=== PATIENT | female | born 1985 | race Caucasian/White ===

== ENCOUNTER 2019-07-25 10:50 | Emergency (ER) | payer MEDICAID, OTHER ==
[~2019-07-25] VITALS: Ht 170.2 cm; Wt 65.0 kg
[2019-07-25] MEDS ORDERED: SODIUM CHLORIDE 0.9% 1,000 ML IV ONE (11:11)
[2019-07-25 11:40] LABS: EOSINOPHILS % 0.3 % (0.0-5.0); HEMATOCRIT. 44.6 % (36.0-48.0); HEMOGLOBIN. 15.6 g/dL (12.0-16.0); LYMPHOCYTES % 24.6 % (20.0-50.0); MEAN CORPUSCULAR HEMOGLOBIN 33.6 pg (28.0-32.0); MEAN CORPUSCULAR VOLUME 96.4 fL (81.0-99.0); MEAN PLATELET VOLUME 8.7 fl (7.4-10.4); MONOCYTES % 6.9 % (2.0-8.0); NEUTROPHILS % 67.2 % (40.0-76.0); PLATELET 207 x1000/uL (130-400); RED BLOOD CELL COUNT 4.63 mill/uL (4.2-5.4); RED CELL DISTRIBUTION WIDTH 12.8 % (11.6-14.6)
[2019-07-25 11:44] LABS: CHLORIDE 100 mEq/L (98-107)
[2019-07-25 11:46] LABS: INR 1.1; PROTHROMBIN TIME 11.5 sec (9.6-11.0)
[2019-07-25 11:52] LABS: HCG SCREEN NEGATIVE
[2019-07-25 12:14] LABS: CLARITY URINE CLEAR (CLEAR); COLOR URINE DARK YELLOW (YELLOW); KETONES URINE 1+ (NEGATIVE); LEUKOCYTE ESTERASE URINE TRACE (NEGATIVE); NITRITE URINE NEGATIVE (NEGATIVE); OCCULT BLOOD URINE 3+ (NEGATIVE); PROTEIN URINE 1+ (NEGATIVE); SPECIFIC GRAVITY URINE 1.028 (1.005-1.030)
[2019-07-25] MEDS ORDERED: VISCOUS LIDOCAINE 2% 15 ML UDC PO STA (12:34)
[2019-07-25] MEDS ORDERED: MAGNESIUM/ALUMINUM HYDROXIDE/SIMETHICONE 30ML UDC PO STA (12:34)
[2019-07-25] MEDS ORDERED: FAMOTIDINE 20MG/2ML VIAL IV STA (12:34)
[2019-07-25] MEDS ORDERED: LORAZEPAM 2MG/ML CPJ IV ONE (12:45)
[2019-07-25 15:21] VITALS: BP 127/86
== END 2019-07-25 15:25 | disposition home or self-care (01) ==
LOC: ER 10:50
DX: F10.20 Alcohol dependence, uncomplicated (principal); Y90.9 Presence of alcohol in blood, level not specified; K70.10 Alcoholic hepatitis without ascites; F41.9 Anxiety disorder, unspecified; R03.0 Elevated blood-pressure reading, without diagnosis of hypertension; R20.0 Anesthesia of skin; M25.642 Stiffness of left hand, not elsewhere classified; M25.641 Stiffness of right hand, not elsewhere classified; M25.675 Stiffness of left foot, not elsewhere classified; M25.674 Stiffness of right foot, not elsewhere classified; J02.9 Acute pharyngitis, unspecified
CPT/HCPCS: 36415; 74176; 76705; 80053; 81003; 83690; 84703; 85025; 85610; 93005; 96374; 96375; 99285; J2060; J3490; J7030

== ENCOUNTER 2021-07-01 21:58 | Emergency (ER) | payer MEDICAID ==
[~2021-07-01] VITALS: Ht 170.2 cm; Wt 59.0 kg
[2021-07-01 23:52] LABS: BASOPHILS % 0.9 % (0.0-2.0); HEMATOCRIT. 34.8 % (36.0-48.0); HEMOGLOBIN. 12.2 g/dL (12.0-16.0); LYMPHOCYTES % 24.5 % (20.0-50.0); MEAN CORPUSCULAR HEMOGLOBIN 35.4 pg (28.0-32.0); MEAN PLATELET VOLUME 8.8 fl (7.4-10.4); MONOCYTES % 8.5 % (2.0-8.0); NEUTROPHILS % 65.1 % (40.0-76.0); PLATELET 205 x1000/uL (130-400); RED BLOOD CELL COUNT 3.45 mill/uL (4.2-5.4); RED CELL DISTRIBUTION WIDTH 13.3 % (11.6-14.6)
[2021-07-02 00:14] LABS: CHLORIDE 99 mEq/L (98-107)
[2021-07-02 00:22] LABS: CLARITY URINE CLEAR (CLEAR); COLOR URINE ORANGE (YELLOW); KETONES URINE TRACE (NEGATIVE); LEUKOCYTE ESTERASE URINE TRACE (NEGATIVE); NITRITE URINE NEGATIVE (NEGATIVE); OCCULT BLOOD URINE NEGATIVE (NEGATIVE); PROTEIN URINE NEGATIVE (NEGATIVE); SPECIFIC GRAVITY URINE 1.015 (1.005-1.030)
[2021-07-02 02:04] LABS: INR 1.1; PROTHROMBIN TIME 11.5 sec (9.6-11.0)
[2021-07-02] MEDS ORDERED: ACETAMINOPHEN 325MG TABLET PO ONE (03:00)
[2021-07-02 03:53] VITALS: BP 147/96
== END 2021-07-02 03:53 | disposition home or self-care (01) ==
LOC: ER 21:58
DX: K70.10 Alcoholic hepatitis without ascites (principal); Z88.0 Allergy status to penicillin
CPT/HCPCS: 36415; 80053; 81003; 82270; 85025; 86850; 86900; 99283

== ENCOUNTER 2023-05-25 02:35 | Inpatient (IN) | payer MEDICAID, OTHER ==
[~2023-05-25] VITALS: Ht 170.2 cm; Wt 65.8 kg
[~2023-05-25 02:35] MED LIST: MAGN100T6 MT; POTA-204 MT; THIA50TA12 MT; VANJ5 PO
[2023-05-25 03:56] LABS: BASOPHILS % 0.7 % (0.0-2.0); EOSINOPHILS % 0.4 % (0.0-5.0); HEMATOCRIT. 36.3 % (36.0-48.0); HEMOGLOBIN. 12.1 g/dL (12.0-16.0); LYMPHOCYTES % 12.8 % (20.0-50.0); MEAN CORPUSCULAR HEMOGLOBIN 32.9 pg (28.0-32.0); MEAN CORPUSCULAR HGB CONC 33.4 g/dL (31.0-37.0); MEAN CORPUSCULAR VOLUME 98.5 fL (81.0-99.0); MEAN PLATELET VOLUME 8.5 fl (7.4-10.4); MONOCYTES % 6.1 % (2.0-8.0); PLATELET 162 x1000/uL (130-400); RED BLOOD CELL COUNT 3.69 mill/uL (4.2-5.4); RED CELL DISTRIBUTION WIDTH 19.9 % (11.6-14.6); WHITE BLOOD COUNT 7.9 x1000/uL (4.5-11.0)
[2023-05-25 04:11] LABS: CLARITY URINE CLEAR (CLEAR); COLOR URINE YELLOW (YELLOW); GLUCOSE URINE NEGATIVE (NEGATIVE); KETONES URINE NEGATIVE (NEGATIVE); LEUKOCYTE ESTERASE URINE 1+ (NEGATIVE); NITRITE URINE POSITIVE (NEGATIVE); OCCULT BLOOD URINE NEGATIVE (NEGATIVE); PH URINE >9 (4.5-8.0); PROTEIN URINE 2+ (NEGATIVE); SPECIFIC GRAVITY URINE 1.032 (1.005-1.030); UROBILINOGEN URINE 1 E.U./dL (0.2-1.0)
[2023-05-25 04:13] LABS: BACTERIA URINE TRACE; RBC URINE NONE SEEN /hpf (0-2); SQUAMOUS EPITHELIAL CELL URINE FEW /lpf (RARE/1+)
[2023-05-25 05:00] LABS: ALANINE AMINOTRANSFERASE 81 IU/L (10-49); ALBUMIN 4.7 g/dL (3.2-4.8); ASPARTATE AMINOTRANSFERASE 173 IU/L (<34); BILIRUBIN TOTAL 1.7 mg/dL (0.1-1.0); CALCIUM 8.3 mg/dL (8.7-10.4); CARBON DIOXIDE 29 mEq/L (21-32); CHLORIDE 96 mEq/L (98-107); CREATININE 0.7 mg/dL (0.6-1.0); GLUCOSE 108 mg/dL (70-105); POTASSIUM 3.6 mEq/L (3.5-5.1); PROTEIN TOTAL 8.1 g/dL (6.0-8.3); SODIUM 136 mEq/L (136-145); UREA NITROGEN BLOOD 11 mg/dL (9-23)
[2023-05-25] MEDS: ONDANSETRON HCL 4MG/2ML INJ IV STA ×2 (06:18→10:30)
[2023-05-25] MEDS: ACETAMINOPHEN 325MG TABLET PO STA (06:19)
[2023-05-25] MEDS: LEVOFLOXACIN 750MG PREMIX 150 ML IV ONE (09:43)
[2023-05-25] MEDS: MORPHINE SULFATE 4 MG/ML CPJ (NOT FOR IM USE) IV ONE (09:43)
[2023-05-25] MEDS: SODIUM CHLORIDE 0.9% 1,000 ML IV ONE (10:30)
[2023-05-25] MEDS: IBUPROFEN 400MG TABLET PO ONE (13:57)
[2023-05-25 16:00] VITALS: BP 115/99; PULSE 94; RESP 19; TEMP 97.4
[2023-05-25 16:51] VITALS: BP 115/99; PULSE 94; RESP 19; TEMP 97.4
[2023-05-25] MEDS ORDERED: CLONIDINE 0.1MG TABLET PO PRN (18:00)
[2023-05-25] MEDS ORDERED: IPRATROPIUM/ALBUTEROL 0.5-3(2.5)MG/3ML NEB HHN PRN (18:00)
[2023-05-25] MEDS ORDERED: DIPHENHYDRAMINE 50MG/ML VIAL IV PRN (18:00)
[2023-05-25] MEDS ORDERED: MORPHINE SULFATE 2 MG/ML CPJ (NOT FOR IM USE) IV PRN (18:00)
[2023-05-25] MEDS: LEVOFLOXACIN 500MG PREMIX 100 ML IV SCH (18:00)
[2023-05-25] MEDS ORDERED: NALOXONE HCL 0.4MG/ML VIAL IV PRN (18:15)
[2023-05-25] MEDS: ONDANSETRON HCL 4MG/2ML INJ IV PRN (18:30)
[2023-05-25] MEDS: SODIUM CHLORIDE 0.9% 1,000 ML IV SCH (18:45)
[2023-05-25 20:00] VITALS: BP 139/91; PULSE 89; RESP 18; TEMP 97.9
[2023-05-25] MEDS: ACETAMINOPHEN 325MG TABLET PO PRN (21:54)
[2023-05-26 04:00] VITALS: BP 148/78; PULSE 91; RESP 18; TEMP 97
[2023-05-26 06:58] LABS: BASOPHILS % 0.3 % (0.0-2.0); EOSINOPHILS % 0.6 % (0.0-5.0); HEMATOCRIT. 36.9 % (36.0-48.0); HEMOGLOBIN. 12.3 g/dL (12.0-16.0); LYMPHOCYTES % 11.1 % (20.0-50.0); MEAN CORPUSCULAR HEMOGLOBIN 32.4 pg (28.0-32.0); MEAN CORPUSCULAR HGB CONC 33.2 g/dL (31.0-37.0); MEAN CORPUSCULAR VOLUME 97.5 fL (81.0-99.0); MEAN PLATELET VOLUME 9.4 fl (7.4-10.4); MONOCYTES % 4.2 % (2.0-8.0); NEUTROPHILS % 83.8 % (40.0-76.0); PLATELET 119 x1000/uL (130-400); RED BLOOD CELL COUNT 3.79 mill/uL (4.2-5.4); RED CELL DISTRIBUTION WIDTH 19.5 % (11.6-14.6); WHITE BLOOD COUNT 8.6 x1000/uL (4.5-11.0)
[2023-05-26 07:27] LABS: ALANINE AMINOTRANSFERASE 75 IU/L (10-49); ALBUMIN 4.3 g/dL (3.2-4.8); ASPARTATE AMINOTRANSFERASE 201 IU/L (<34); BILIRUBIN TOTAL 1.5 mg/dL (0.1-1.0); CALCIUM 7.6 mg/dL (8.7-10.4); CARBON DIOXIDE 28 mEq/L (21-32); CHLORIDE 99 mEq/L (98-107); CREATININE 0.7 mg/dL (0.6-1.0); GLUCOSE 98 mg/dL (70-105); POTASSIUM 3.3 mEq/L (3.5-5.1); PROTEIN TOTAL 7.4 g/dL (6.0-8.3); SODIUM 137 mEq/L (136-145); UREA NITROGEN BLOOD 10 mg/dL (9-23)
[2023-05-26 08:00] VITALS: BP 121/69; PULSE 97; RESP 18; TEMP 97.8
[2023-05-26] MEDS: DOCUSATE SODIUM 100MG CAPSULE PO SCH (08:46)
[2023-05-27] MEDS ORDERED: LEVOFLOXACIN 500MG PREMIX 100 ML IV SCH (06:00)
== END 2023-05-26 11:19 | disposition left against medical advice (07) ==
LOC: ER 02:35 → 6WST 10:34 → EDBEDREQ 10:43
PROVIDERS: ADMIT Internal Medicine; ATTEND Internal Medicine
DX: K76.89 Other specified diseases of liver (principal); F10.10 Alcohol abuse, uncomplicated; N83.201 Unspecified ovarian cyst, right side; N39.0 Urinary tract infection, site not specified; Z98.891 History of uterine scar from previous surgery; Z88.0 Allergy status to penicillin; Z79.899 Other long term (current) drug therapy
CPT/HCPCS: 36415; 74176; 76705; 76830; 76856; 80053; 81003; 85025; 86304; 93970; 99285; J1956; J2270; J2405; J7030